=== PATIENT | male | born 1990 | race Two or more races ===

== ENCOUNTER 2024-06-21 18:25 | Emergency (ER) | payer MEDICAID, SELFPAY ==
[2024-06-21 18:48] VITALS: BP 144/92; PULSE 63; RESP 16; TEMP 36.9; O2SAT 97; BMI 28.7
--- NOTE | 2024-06-21 18:52 | PD.EDRME ---
Rapid Medical Screening Exam RME Arrival date/time: 06/21/24 18:25 33 year old male present to ED for c/o of RLQ for 2 days I have greeted and performed a focused initial assessment of this patient. A comprehensive ED assessment and evaluation of the patient, analysis of all test results, and completion of the medical decision making process will be conducted by additional ED providers. Chief Complaint: Abdominal Pain Vital signs: Vital Signs Temperature 98.4 F 06/21/24 18:48 Pulse Rate 63 06/21/24 18:48 Respiratory Rate 16 06/21/24 18:48 Blood Pressure 144/92 H 06/21/24 18:48 Pulse Oximetry (%) 97 06/21/24 18:48 Oxygen Delivery Method Room Air 06/21/24 18:48
--- NOTE | 2024-06-21 18:55 | XR_ITS ---
Examination: CT abdomen with intravenous contrast CT pelvis with intravenous contrast 2-D coronal reconstructions 2-D sagittal reconstructions Date and time of exam:June 21, 2024 2100 hrs. Indications: Onset right lower abdominal pain beginning 2 days ago. CTDI: vol (mGy) 8.70 DLP: (mGycm) 530 Technique: Multiple axial sections of the abdomen and pelvis have been obtained. 64 slice high-resolution scanner used. 3 mm axial sections have been obtained, post intravenous injection 60 cc [id number] 2-D sagittal, coronal reconstructions obtained. Low dose protocols were performed. One or more of the following dose reduction techniques were used; automated exposure control, adjustment of the mA and/or KV according to patient size, use of iterative reconstruction technique. Findings: No focal liver or splenic lesions Suspicious for small gallstones No pancreatic mass No renal or ureteral calculi, no hydronephrosis Aorta normal size. 20 mm fat-containing umbilical hernia No pericecal inflammatory change No bowel obstruction diverticulitis or free air Normal seminal vesicles Urinary bladder intact Fat-containing right inguinal hernia The osseous structures are intact Impression: Recommend hepatobiliary sonography to exclude gallstones No CT findings of appendicitis bowel obstruction or diverticulitis
[2024-06-21 19:29] LABS: Collection Type, Urine Voided; Squamous Epithelial Cell,Urine 0 /hpf (0-5)
[2024-06-21 19:40] LABS: Basophils % (Auto) 0 % (0-2.5); Eosinophils # (Auto) 0.1 Thou/mm3 (0.0-0.5); Eosinophils % (Auto) 1 % (0-10); Hematocrit 45.7 % (41.0-53.0); Hemoglobin 15.7 g/dL (13.5-16.0); Immature Granulocytes % (Auto) 0 % (0-0); Immature Granulocytes Auto 0.02 Thou/mm3 (0.00-0.00); Lymphocytes # (Auto) 2.1 Thou/mm3 (1.0-4.8); Lymphocytes % (Auto) 25 % (10-50); Mean Corpuscular HGB Conc 34.4 g/dl (31.0-37.0); Mean Corpuscular Hemoglobin 31.1 pg (25.0-35.0); Mean Corpuscular Volume 91 fL (80-100); Monocytes # (Auto) 0.7 Thou/mm3 (0.0-0.8); Monocytes % (Auto) 8 % (0-12); Neutrophils # (Auto) 5.3 Thou/mm3 (1.8-7.7); Neutrophils % (Auto) 65 % (37-80); Nucleated Red Blood Cell % 0 /100 WBC (0); Platelet Count 297 Thou/mm3 (140-440); RDW Standard Deviation 42.1 fL (35.1-43.9); Red Blood Count 5.05 Miln/mm3 (4.50-5.90); White Blood Count 8.2 Thou/mm3 (3.8-10.6)
[2024-06-21 19:41] LABS: Bilirubin,Urine Negative (Negative); Blood,Urine Negative (Negative); Clarity,Urine Clear (Clear/Hazy); Color,Urine Lt-Yellow (Lt Yel-Yel); Glucose, Urine Negative (Negative); Ketones,Urine Negative (Negative); Leukocyte Esterase,Urine Negative (Negative); Nitrite,Urine Negative (Negative); Protein,Urine Trace (Neg - Trace); RBC,Urine 3 /hpf (0-3); Specific Gravity,Urine 1.028 (1.001-1.035); Urobilinogen,Urine Negative mg/dL (0.0-1.0); WBC,Urine < 1 /hpf (0-5)
[2024-06-21 19:53] LABS: Alanine Aminotransferase 45 U/L (10-49); Albumin, Serum 4.8 gm/dL (3.5-5.0); Albumin/Globulin Ratio 1.5 (1.2-2.2); Alkaline Phosphatase 120 U/L (46-116); Anion Gap 7 (7-16); Aspartate Amino Transferase 30 U/L (0-34); BUN/Creatinine Ratio 17 Ratio (12-20); Bilirubin,Total 0.5 mg/dL (0.3-1.2); Blood Urea Nitrogen 17 mg/dL (9-23); Calcium 9.4 mg/dL (8.3-10.6); Calcium (Corrected) 9.4 mg/dL (8.5-10.1); Carbon Dioxide 30.8 mMol/L (20.0-31.0); Chloride 101 mMol/L (98-107); Estimated Creatinine Clearance 109.9 mL/min (>60); Globulin 3.2 gm/dL (2.3-3.5); Glucose 99 mg/dL (74-106); Lipase 35 U/L (12-53); Osmolality,Calculated 279 (275-295); Potassium 4.1 mMol/L (3.4-5.1); Sodium 139 mMol/L (136-145); eGFR > 60 See Note
--- NOTE | 2024-06-21 22:29 | PD.EDABDPN ---
ED Abdominal Pain RME/HPI General Chief Complaint: Abdominal Pain Stated complaint: ABD PAIN x 2 DAYS Time seen by provider: 06/21/24 18:56 Arrival date/time: 06/21/24 18:25 RME / HPI RME / HPI narrative: 33-year-old male patient came in for evaluation regarding right lower quadrant pain. This been ongoing for the last 2 days, described as dull ache, severity mild. Denies any vomiting denies any fever denies any diarrhea denies any constipation denies any other complaints no medications taken prior to arrival Related Data Previous Rx's ?Medication ?Instructions ?Recorded dicyclomine 20 mg tablet 20 mg PO TID PRN abdominal pain 06/21/24 #30 tabs polyethylene glycol 3350 17 gram 17 g PO QDAY #14 ea 06/21/24 oral powder packet (Miralax) Allergies Allergy/AdvReac Type Severity Reaction Status Date / Time No Known Allergies Allergy Verified 06/21/24 18:28 Review of Systems Review of Systems Narrative Review of Systems: Review of system reviewed and within normal limits except mentioned in HPI ED Exam Narrative Physical exam: VITAL SIGNS: Reviewed. GENERAL APPEARANCE: Alert and interactive, follows commands, no acute distress, HEAD AND FACE: Non-traumatic. ENT: PERRL, pink conjunctivitis, eyelid no trauma, Mucous membrane moist. NECK: Supple, nontender, no nuchal rigidity. CHEST: No tenderness, no crepitus, no paradoxical movement, no retractions. LUNGS: Clear, well ventilated, symmetric, no rales, no wheezing, no ronchi, no stridor, good breath sounds bilaterally. HEART: Regular rate, regular rhythm, no murmur, no gallops. ABDOMEN: Soft, positive bowel sounds, nondistended, no guarding, right lower quadrant tenderness, no rebound, no masses, RECTAL: Deferred. GENITAL: Deferred. NEUROLOGICAL: Gross motor function intact sensory function intact, Appropriate for age. MUSCULOSKELETAL: low back nontender, full range of motion. EXTREMITIES: Nontender, full range of motion. SKIN: Color pink, dry, no rash, no lacerations, no abrasions, no contusions. LYMPHATICS: Deferred. Course Quality Measures none Orders Category Date Time Status CT Screening NOW Care 06/21/24 18:[address] abdomen pelvis w con Stat Exams 06/21/24 18:55 Completed CBC Stat Lab 06/21/24 19:18 Completed CMP [Comprehensive Metabolic Panel] Stat Lab 06/21/24 19:18 Completed Lipase Stat Lab 06/21/24 19:18 Completed UA [Urinalysis] Stat Lab 06/21/24 19:15 Completed Urine Culture Stat Lab 06/21/24 19:15 Received Ketorolac Inj [Toradol Inj] Med 06/21/24 22:29 Once 30 mg IVP X1 ONE Vital Signs Vital signs: Vital Signs Temperature 98.4 F 06/21/24 18:48 Pulse Rate 63 06/21/24 18:48 Respiratory Rate 16 06/21/24 18:48 Blood Pressure 144/92 H 06/21/24 18:48 Pulse Oximetry (%) 97 06/21/24 18:48 Oxygen Delivery Method Room Air 06/21/24 18:48 Abdominal Pain MDM MDM Narrative MDM Narrative:: Patient's workup today all came back unremarkable including including CT scan of the abdomen and pelvis. Results discussed with the patient. Patient is probably having muscular pain in the abdomen. Patient stable for discharge home. Patient data External records reviewed:: None Clinical information provided by:: patient and family Social determinants that could affect healthcare access:: none Patient has the following chronic illnesses:: None How is presenting disease/condition affected by chronic disease/condition?: no chronic disease Evaluation data The following diagnostics were reviewed and interpreted by me:: lab results and radiology exam(s) Lab and/or radiology exams considered but not ordered:: None Interpretation Summary: Patient's workup all came back unremarkable CT scan of the abdomen and pelvis also came back unremarkable. Medications / Prescriptions Medications or Prescriptions considered but not ordered:: None Medication administrations:: None Consultations Consultation(s) initiated? (list below): No Diagnosis Differential diagnosis abdominal pain: abdominal pain and other (Appendicitis constipation) Most likely diagnosis given after review of the tests above:: Abdominal pain, muscular Admission Indicated Admission indicated?: not indicated Admission Request Was there a request for admission?: No Disposition Plan Disposition Plan: Discharge Discharge Attestation Discharge Attestation: The patient and all family members were given an opportunity to ask questions and understood the discharge instructions. Discharge instructions specifically effects, indications for sooner follow up or return to the emergency department, and the expected course of current diagnosis. Patient condition: Stable Discharge Plan Plan Patient Disposition: HOME (Self Care) Disposition Comment: Stable Prescriptions/Referrals Prescriptions/Med Rec: New dicyclomine 20 mg tablet 20 mg PO TID PRN (Reason: abdominal pain) Qty: 30 0RF polyethylene glycol 3350 [Miralax] 17 gram powder in packet 17 g PO QDAY Qty: 14 0RF Referrals: No Primary/Family,Physician [Primary Care Provider] - In 1 week Problem List Clinical Impression: Abdominal pain Patient/Caregiver Discharge Instructions Discharge Activity: activity as tolerated Education Materials: Abdominal Pain Additional Instructions: Thank you for the opportunity for serving you today. You are stable for discharged . You are advised to: Follow-up with your PCP in 1 to 2 days Return to ED for worsening of symptoms Increase oral fluids Take medication as prescribed Print Language: Citizen Of [place] Stand Alone Forms: Ayse Award Info., Patient Portal Info Letter PA/FUNDRAISING SALE REPRESENTATIVE Supervising Physician PA/FUNDRAISING SALE REPRESENTATIVE Supervising Physician: MD Jacquelin
[2024-06-21] MEDS: KETOROLAC INJ 30 MG/ML VIAL IVP (22:49)
== END 2024-06-21 22:53 | disposition home or self-care (01) ==
PROVIDERS: Physician Assistant; Emergency Provider Emergency Medicine
DX: R10.31 Right lower quadrant pain (principal)
CPT/HCPCS: 36415; 74177; 80053; 81001; 83690; 85025; 87086; 99285; A4649; J1885; Q9967

== ENCOUNTER 2024-11-10 11:47 | Emergency (ER) | payer SELFPAY ==
[2024-11-10 12:04] VITALS: BP 117/80; PULSE 60; RESP 18; TEMP 36.7; O2SAT 98; BMI 28.3
--- NOTE | 2024-11-10 12:16 | EDNOTE_ITS ---
ED Fall Injury RME/HPI General Chief Complaint: Fall Stated Complaint: FELL OFF LADDER Time Seen by Provider: 11/10/24 11:56 Arrival date/time: 11/10/24 11:47 This is a 33-year-old male that fell a few days ago at work. Patient states it was a ladder and it was approximately 2 feet high. Patient reports that he slipped. He reports no loss of consciousness. Patient denies any head or neck pain. Patient complains of left lower back pain, left lower rib pain and abdominal pain. Patient denies any numbness or tingling. Patient denies any other injuries. Patient denies any past medical history. Related Data Previous Rx's ?Medication ?Instructions ?Recorded dicyclomine 20 mg tablet 20 mg PO TID PRN abdominal p ain 06/21/24 #30 tabs polyethylene glycol 3350 17 gram 17 g PO QDAY #14 ea 0 06/21/24 oral powder packet (Miralax) cyclobenzaprine 10 mg tablet 10 mg PO HS #14 tabs 12/28 hydrocodone 5 mg-acetaminophen 325 1 tab PO Q8H PRN pa in #10 tabs 11/10/24 mg tablet ibuprofen 800 mg tablet 800 mg PO Q6H PRN pain #14 t abs 11/10/24 Allergies Allergy/AdvReac Type Severity Reaction Status Date / Time No Known Allergies Allergy Verified 06/21/24 18:28 Course Orders Category Date Time Status CT chest abdomen pelvis wo Stat Exams 11/10/24 12:[address] lumbar spine wo con Stat Exams 11/10/24 12:[address] thoracic spine wo con Stat Exams 11/10/24 12:31 Completed CYCLObenzaPRINE [Flexeril] Med 11/10/24 16:17 Discontinued 10 mg PO X1 ONE HYDROcodone*/APAP 5/325 [[place] 5/325] Med 11/10/24 16:17 Discontinued 1 tab PO X1 ONE Ketorolac Inj [Toradol Inj] Med 11/10/24 16:17 Discontinued 60 mg IM X1 ONE Ondansetron Odt [Zofran Odt] Med 11/10/24 16:17 Discontinued 4 mg PO X1 ONE Vital Signs Vital signs: Vital Signs Temperature 98.0 F 11/10/24 12:04 Pulse Rate 60 11/10/24 12:04 Respiratory Rate 18 11/10/24 12:04 Blood Pressure 117/80 11/10/24 12:04 Pulse Oximetry (%) 98 11/10/24 12:04 Oxygen Delivery Method Room Air 11/10/24 12:04 Fall MDM Narrative MDM Narrative:: chest abdomen ct: Impression: Acute displaced fracture left 10th rib posteriorly Thoracic aorta pulmonary arteries intact No pneumothorax pulmonary contusion or hemothorax No abdominal parenchymal laceration Abdominal aorta intact No free blood in the abdomen or pelvis lumbar spine: Findings: No lumbar vertebral body compression fracture Lumbar pedicles, laminae, transverse and posterior spinous processes are intact Sacral segments are intact No spondylolisthesis L5-S1 L4-L5 2 mm central lumbar disc bulges Impression: No acute lumbar fracture thoracic spine: Findings: No acute thoracic vertebral body compression fracture Mild to moderate diffuse thoracic disc narrowing Thoracic pedicles laminae posterior spinous processes intact Impression: No acute thoracic fracture Medications / Prescriptions Medication administrations:: Medication Administration History Discontinued Medications Hydrocodone Bitart/Acetaminophen (Hydrocodone/Apap 5/325 Tablet) 1 tab PO X1 ONE Stop: 11/10/24 16:18 Last Admin: 11/10/24 16:33 Dose: 1 tab Documented By: NURIA Cyclobenzaprine HCl (Cyclobenzaprine 5 Mg Tablet) 10 mg PO X1 ONE Stop: 11/10/24 16:18 Last Admin: 11/10/24 16:33 Dose: 10 mg Documented By: NURIA Ketorolac Tromethamine (Ketorolac Inj 60 Mg/2 Ml Vial) 60 mg IM X1 ONE Stop: 11/10/24 16:18 Last Admin: 11/10/24 16:34 Dose: 60 mg Documented By: NURIA Ondansetron HCl (Ondansetron Odt 4 Mg Tabrap) 4 mg PO X1 ONE; Protocol Stop: 11/10/24 16:18 Last Admin: 11/10/24 16:33 Dose: 4 mg Documented By: NURIA Discharge Plan Plan Patient Disposition: HOME (Self Care) Patient condition on transfer: Stable Prescriptions/Referrals Prescriptions/Med Rec: New cyclobenzaprine 10 mg tablet 10 mg PO HS Qty: 14 0RF ibuprofen 800 mg tablet 800 mg PO Q6H PRN (Reason: pain) Qty: 14 0RF hydrocodone-acetaminophen 5-325 mg tablet 1 tab PO Q8H MDD 3 PRN (Reason: pain) Qty: 10 0RF No Action dicyclomine 20 mg tablet 20 mg PO TID PRN (Reason: abdominal pain) Qty: 30 0RF polyethylene glycol 3350 [Miralax] 17 gram powder in packet 17 g PO QDAY Qty: 14 0RF Referrals: No Primary/Family,Physician [Primary Care Provider] - In 1 week Problem List Clinical Impression: Fracture of left tenth rib, Fall Patient/Caregiver Discharge Instructions Discharge Activity: activity as tolerated Education Materials: ED Rib Fracture Additional Instructions: ct chest and abdomen: Findings: Acute displaced fracture left 10th rib posteriorly Thoracic aorta pulmonary arteries intact No pneumothorax, pulmonary contusion or hemothorax The manubrium the body of the sternum intact No thoracic lumbar or sacral fracture depicted No liver splenic or renal laceration, no perinephric hematoma No gallstones Abdominal aorta intact, no free blood in the abdomen Negative for pneumoperitoneum Tiny fat-containing umbilical hernia Urinary bladder intact Small fat-containing right inguinal hernia Iliac bones acetabular regions and hips appear intact Impression: Acute displaced fracture left 10th rib posteriorly Thoracic aorta pulmonary arteries intact No pneumothorax pulmonary contusion or hemothorax No abdominal parenchymal laceration Abdominal aorta intact No free blood in the abdomen or pelvis Virgilio un dannielle con holley medico de cabecera en las proximas 24-48 horas. Regrese a la juvencio de emergencias si hay evidencia de que los signos o sintomas empeoran. Print Language: Indian Stand Alone Forms: Ayse Award Info., Patient Portal Info Letter PA/DIET SUPERVISOR Supervising Physician PA/DIET SUPERVISOR Supervising Physician: yolie
--- NOTE | 2024-11-10 12:31 | XR_ITS ---
Examination: CT chest, without intravenous contrast. CT abdomen, without intravenous contrast. CT pelvis, without intravenous contrast. 2-D sagittal and coronal reconstructions. 3-D reconstructions. Date and time of exam:November 10, 2024 1335 hrs. Indications: Patient fell off a ladder today with injury to the chest and abdomen, chest pain abdomen pain CTDI vol (mgy) 9.03 DLP (MGycm)639 Technique: Multiple CT images, 3.0 mm slice thickness, obtained chest, abdomen, pelvis, with the high-resolution 64 slice scanner.. Sagittal and coronal 2-D reconstructions are obtained. 3-D reconstructions Low dose protocols were performed. One or more of the following dose reduction techniques were used; automated exposure control, adjustment of the mA and/or KV according to patient size, use of iterative reconstruction technique. Findings: Acute displaced fracture left 10th rib posteriorly Thoracic aorta pulmonary arteries intact No pneumothorax, pulmonary contusion or hemothorax The manubrium the body of the sternum intact No thoracic lumbar or sacral fracture depicted No liver splenic or renal laceration, no perinephric hematoma No gallstones Abdominal aorta intact, no free blood in the abdomen Negative for pneumoperitoneum Tiny fat-containing umbilical hernia Urinary bladder intact Small fat-containing right inguinal hernia Iliac bones acetabular regions and hips appear intact Impression: Acute displaced fracture left 10th rib posteriorly Thoracic aorta pulmonary arteries intact No pneumothorax pulmonary contusion or hemothorax No abdominal parenchymal laceration Abdominal aorta intact No free blood in the abdomen or pelvis
--- NOTE | 2024-11-10 12:31 | XR_ITS ---
Examination: CT lumbar spine, without contrast. 2-D sagittal reconstructions. 2-D coronal reconstructions. 3-D reconstructions. Date and time of exam:November 10, 2024 1329 hrs. Indications: Patient fell off a ladder today with injury to the lower back, lower back pain CTDI: vol (mGy):26.3 DLP: (mGycm):896 Technique: Multiple 1.25 mm axial sections of the lumbar spine without intravenous contrast have been obtained. 2-D sagittal and coronal reconstructions have been obtained. 3-D reconstructions have been obtained. Low dose protocols were performed. One or more of the following dose reduction techniques were used; automated exposure control, adjustment of the mA and/or KV according to patient size, use of iterative reconstruction technique. Findings: No lumbar vertebral body compression fracture Lumbar pedicles, laminae, transverse and posterior spinous processes are intact Sacral segments are intact No spondylolisthesis L5-S1 L4-L5 2 mm central lumbar disc bulges Impression: No acute lumbar fracture
--- NOTE | 2024-11-10 12:31 | XR_ITS ---
Examination: CT thoracic spine, without contrast. 2-D sagittal reconstructions. 2-D coronal reconstructions. 3-D reconstructions. Date and time of exam:November 10, 2024 at 1329 hrs. Indications: Patient fell off a ladder today with injury to the mid back, mid back pain CTDI: vol (mGy):29.8 DLP: (mGycm):1034 Technique: Multiple 1.25 mm axial sections of the thoracic spine without intravenous contrast have been obtained. 2-D sagittal and coronal reconstructions have been obtained. 3-D reconstructions have been obtained. Low dose protocols were performed. One or more of the following dose reduction techniques were used; automated exposure control, adjustment of the mA and/or KV according to patient size, use of iterative reconstruction technique. Findings: No acute thoracic vertebral body compression fracture Mild to moderate diffuse thoracic disc narrowing Thoracic pedicles laminae posterior spinous processes intact Impression: No acute thoracic fracture
[2024-11-10 16:00] VITALS: BP 130/88; PULSE 68; RESP 18; TEMP 36.7; O2SAT 98
[2024-11-10] MEDS: ONDANSETRON ODT 4 MG TABRAP PO (16:33)
[2024-11-10] MEDS: CYCLObenzaPRINE 5 MG TABLET 10 MG PO (16:33)
[2024-11-10] MEDS: HYDROcodone/APAP 5/325 TABLET 1 TAB PO (16:33)
[2024-11-10] MEDS: KETOROLAC INJ 60 MG/2 ML VIAL IM (16:34)
== END 2024-11-10 16:43 | disposition home or self-care (01) ==
PROVIDERS: Emergency Provider Family Medicine
DX: S22.32XA Fracture of one rib, left side, initial encounter for closed fracture (principal); S39.92XA Unspecified injury of lower back, initial encounter; S29.9XXA Unspecified injury of thorax, initial encounter; S39.91XA Unspecified injury of abdomen, initial encounter; W11.XXXA Fall on and from ladder, initial encounter
CPT/HCPCS: 71250; 72128; 72131; 74176; 96372; 99284; J1885; Q0162; A9270